=== PATIENT | male | born 1955 | race Caucasian/White ===

== ENCOUNTER → 2017-12-04 | Outpatient (CLI) | payer OTHER | LOC: FIMAGING 10:41 | PROVIDERS: ATTEND Internal Medicine Gastroenterology | DX: R07.89 Other chest pain (principal) ==

== ENCOUNTER 2018-11-26 15:09 | Emergency (ER) | payer OTHER ==
--- NOTE | 2018-11-26 17:09 | CPEKG ---
Test Reason : OPEN Blood Pressure : / mmHG Vent. Rate : 054 BPM Atrial Rate : 054 BPM P-R Int : 206 ms QRS Dur : 095 ms QT Int : 430 ms P-R-T Axes : 034 052 032 degrees QTc Int : 408 ms Sinus rhythm Confirmed by Zhang Jacobson ([id number]) on 11/26/2018 5:09:07 PM Referred By: Zhang Jacobson Confirmed By:Zhang Jacobson
--- NOTE | 2018-11-26 17:26 | EDPHY ---
H & P Time Seen by Provider: 11/26/18 16:50 HPI/ROS: CHIEF COMPLAINT: Lightheaded HISTORY OF PRESENT ILLNESS: The patient gave blood for the 1st time last Friday. He just drove by the van and thought it looked like a good idea. At around 8:00 p.m. He stood up got lightheaded and had an episode of syncope. He did not injure himself. He did not have chest pain shortness of breath headache or neck pain. Over the last 3 to 4 days, when he gets up quickly from lying down or sitting he feels a bit lightheaded, has not had any further episodes of syncope. No palpitations. Symptoms now mild but were moderate to severe on Friday. REVIEW OF SYSTEMS: Eye: no change in vision ENT: no sore throat Cardiac: HPI Pulmonary: no cough or SOB Abdomen: no vomiting, diarrhea, abdominal pain, normal oral intake Musculoskeletal: No back or neck pain Skin: no rash Neuro: no headache Constitutional: no fever : no urinary symptoms A comprehensive 10 point review of systems is otherwise negative aside from elements mentioned in the history of present illness. PAST MEDICAL HISTORY: Hypertension and spine surgery, irritable bowel. No history of coronary disease. Social history: Nonsmoker General Appearance: Alert and conversant, cooperative. Eyes: No scleral icterus. ENT, Mouth: Normal mucous membranes. Respiratory: Normal respiratory effort, breath sounds equal, lungs are clear to auscultation. Cardiovascular: Regular rate and rhythm. No murmur. Gastrointestinal: Abdomen is soft and non tender. Neurological: Alert, face symmetric, normal motor and sensory in extremities. Fluent speech, ambulatory. Skin: Warm and dry, no rashes. Musculoskeletal: No peripheral edema. Psychiatric: Not agitated. Emergency Department course/MDM: The patient likely has some orthostatic hypotension still has a consequence from having given blood on Friday for the 1st time. He has a normal EKG without evidence of electrical abnormality, I think the likelihood of acute coronary syndrome or seizure or malignant dysrhythmia or active blood loss is unlikely. He is encouraged to eat and drink normally, his symptoms are slowly improving, he is likely to resolve spontaneously. Smoking Status: Never smoked Constitutional: Initial Vital Signs Temperature (C) 37.1 C 11/26/18 15:21 Heart Rate 61 11/26/18 15:21 Respiratory Rate 16 11/26/18 15:21 Blood Pressure 140/76 H 11/26/18 15:21 O2 Sat (%) 95 11/26/18 15:21 O2 Delivery Mode Room Air Allergies/Adverse Reactions: No Known Allergies Allergy (Unverified 11/26/18 15:20) Home Medications: Medication Instructions Recorded Lisinopril 04/05/16 Medical Decision Making - Diagnostics EKG Interpretation: 12-lead EKG interpreted by me; official reading is in computer system. My interpretation is sinus rhythm rate 54 normal intervals and no ischemic changes. - Data Points Laboratory Results: 11/26/18 17:25 POC Hgb 14.3 gm/dL gm/dL (13.7-17.5) POC Hct 42 % % (40-51) POC Sodium 140 mEq/L mEq/L (135-145) POC Potassium 4.4 mEq/L mEq/L (3.3-5.0) POC Chloride 104 mEq/L mEq/L (97-110) POC Total CO2 24 mEq/L mEq/L (22-31) POC BUN 21 mg/dL mg/dL (7-23) POC Creatinine 0.9 mg/dL mg/dL (0.7-1.3) POC Glucose 95 mg/dL mg/dL (70-100) Point of Care Test Results: Chemistry 11/26/18 17:25 POC Sodium 140 mEq/L mEq/L (135-145) POC Potassium 4.4 mEq/L mEq/L (3.3-5.0) POC Chloride 104 mEq/L mEq/L (97-110) POC Total CO2 24 mEq/L mEq/L (22-31) POC BUN 21 mg/dL mg/dL (7-23) POC Creatinine 0.9 mg/dL mg/dL (0.7-1.3) POC Glucose 95 mg/dL mg/dL (70-100) ISTAT H&H 11/26/18 17:25 POC Hgb 14.3 gm/dL gm/dL (13.7-17.5) POC Hct 42 % % (40-51) Departure - Departure Disposition: Home, Routine, Self-Care Clinical Impression: Near syncope Condition: Good Instructions: Near Syncope (ED) Additional Instructions: Normal EKG. Hematocrit 42. Referrals: An Mckenna MD [Primary Care Provider] - As per Instructions
[2018-11-26 17:59] VITALS: BP 122/78
== END 2018-11-26 17:59 | disposition home or self-care (01) ==
DX: R55 Syncope and collapse (principal); I10 Essential (primary) hypertension
CPT/HCPCS: 82435-PO; 82565-PO; 82947-PO; 84132-PO; 84295-PO; 84520-PO; 85014-ER